=== PATIENT | female | born 1950 | race Caucasian/White ===

== ENCOUNTER 2024-12-24 21:43 | Inpatient (IN) | payer MEDICARE, OTHER, SELFPAY ==
[2024-12-24] VITALS (7 sets, daily range): BP systolic 113–130; BP diastolic 74–103; BMI 20.7; BMI 21.0
[2024-12-24 18:11] LABS: % Immature Granulocytes 0.3 % (0-0.5); % Lymphocytes 17.8 % (20.5-51.1); % Monocytes 5.1 % (1.7-9.3); % Neutrophils 75.8 % (42.2-75.2); Absolute Eosinophils 0.1 10^3/uL (0-0.7); Absolute Lymphocytes 1.1 10^3/uL (1.2-3.4); Absolute Monocytes 0.3 10^3/uL (0.1-0.6); Absolute Neutrophils 4.5 10^3/uL (1.4-6.5); Hematocrit 33.7 % (37.0-47.0); Hemoglobin 11.8 g/dL (12.0-16.0); Mean Corpuscular Hgb 30.3 pg (27.0-31.0); Mean Corpuscular Volume 86.6 fL (81.0-99.0); Mean Platelet Volume 9.8 fL (7.4-10.4); Nucleated Red Blood Cells % 0 %; Platelet Count 182 10^3/uL (130-400); Red Blood Cell Count 3.89 10^6/uL (4.20-5.40); Red Cell Dist. Width 13.4 % (11.5-14.5); White Blood Cell Count 5.9 10^3/uL (4.8-10.8)
[2024-12-24 18:27] LABS: ALT (SGPT) 24 U/L (0-35); AST (SGOT) 26 U/L (14-36); Alkaline Phosphatase 71 U/L (38-126); Blood Urea Nitrogen 7 mg/dl (7-17); Calcium 9.4 mg/dl (8.4-10.2); Carbon Dioxide 22 mmol/L (22-30); Chloride 101 mmol/L (98-107); Glucose 130 mg/dl (70-99); Potassium 3.4 mmol/L (3.5-5.1); Sodium 132 mmol/L (135-145); Total Bilirubin 1.3 mg/dl (0.2-1.3); Total Protein 6.4 g/dl (6.3-8.2); eGFR > 60.00
[2024-12-24 18:59] LABS: TSH Reflex To Free T4 3.99 uIU/ml (0.47-4.68)
--- NOTE | 2024-12-24 19:24 | ED.GENMED ---
History of Present Illness
General
Chief Complaint: Heart Rate Problem
Source: patient and other (Friend)
Exam Limitations: none
Time Seen by Provider: 12/24/24 18:55
Nursing documentation reviewed up to this point in time: agreed with
History of Present Illness
History of Present Illness:
74-year-old female presents emergency department complaining of general weakness for the past 2 days, chills and a rash on her arms and abdomen. She denies fevers. She was seen in urgent care, and was found to be in uncontrolled atrial
fibrillation.
Past History
Past History
ED Past Medical History: Arrthythmia
ED Past Surgical History: Other (Right lumpectomy)
Social History
Tobacco: Non-smoker
Alcohol: None
Drug: None
Living: alone
Review of Systems
Review of Systems
Allergies reviewed?: Yes
All Other Systems: Not applicable
Constitutional: Reports chills; Denies fever
EENT: Reports no symptoms
Respiratory: Reports no symptoms
Cardiac: Reports palpitations
ABD/GI: Reports no symptoms
: Reports no symptoms
Musculoskeletal: Reports no symptoms
Skin: Reports itching and rash
Neurological: Reports no symptoms
Endocrine: Reports no symptoms
Hematologic/Lymphatic: Reports no symptoms
Psychiatric: Reports no symptoms
Phy Exam
Physical Exam
Physical Exam:
Physical Exam
General: no apparent distress, not acutely ill
Neck: supple. no meningeal signs. normal posterior pharynx
Heart: s1/s2 tachycardia, no murmur. equal radial
pulses.
HEENT: Pupils equal round reactive to light, EOMI
Lungs: no acute respiratory distress. clear bilaterally
Abdomen: normal bowel sounds. not tender. no CVAT
Neuro: alert and oriented. no focal neurological deficits cranial nerves II through XII intact
Skin: macular rash on abdomen/back
Psychiatric: well kept. interactive and cooperative
Extremities: no edema. no calf tenderness. negative homans. good distal pulses
Course
Orders/Labs/Results
Orders:
Orders
12/24/24 17:36
Electrocardiogram (*1) Urgent
Reason for Study: Atrial Fibrillation
EKG- Treatment ONCE
12/24/24 17:57
Complete Blood Count/With Diff Urgent
Comprehensive Metabolic Panel Urgent
TSH Reflex To Free T4 Urgent
12/24/24 19:23
Diltiazem 125 mg/125 ml Nss [Cardizem] 125 mg in 125 ml IV NOW
Initial dose in mg/hr, then titrate:: 5
Titrate to keep:: Heart rate 80-100 bpm
Titrate by mg/hr:: 5 mg/hr
Frequency of titrations (minutes):: 15
Maximum dose in mg/hr:: 15
Diltiazem HCl [Cardizem] 5 mg IV NOW STA
12/24/24 19:34
CR Chest - 2 Views Urgent
Comment:
Reason For Exam: short of breath
12/24/24 19:40
COVID-19 Antigen Urgent
Source: Nasal Swab
Influenza A+B Rapid Molecular Urgent
RADHA Source: Nasal Swab
Specimen Description:
Abnormal Lab Results
12/24/24
17:57
RBC 3.89 L 10^6/uL
(4.20-5.40)
Hgb 11.8 L g/dL
(12.0-16.0)
Hct 33.7 L %
(37.0-47.0)
Absolute Lymphs (auto) 1.1 L 10^3/uL
(1.2-3.4)
Neutrophils % 75.8 H %
(42.2-75.2)
Lymphocytes % 17.8 L %
(20.5-51.1)
Sodium 132 L mmol/L
(135-145)
Potassium 3.4 L mmol/L
(3.5-5.1)
Glucose 130 H mg/dl
(70-99)
12/24/24 17:57
12/24/24 17:57
Vital Signs
Initial and Last Documented VS:
Initial Vital Signs
Temp Pulse Resp BP Pulse Ox
98.2 F 130 18 129/74 99
12/24/24 17:44 12/24/24 17:44 12/24/24 17:44 12/24/24 17:44 12/24/24 17:44
Last Documented Vital Signs
Temp Pulse Resp BP Pulse Ox
98.2 F 92 13 114/78 100
12/24/24 17:44 12/24/24 20:45 12/24/24 20:45 12/24/24 20:01 12/24/24 20:45
MDM/Problems Addressed
Differential Diagnosis Includes:
Pneumonia, influenza, rapid atrial fibrillation
MDM/Problems Addressed:
74-year-old female with rapid atrial fibrillation, diltiazem drip given. No signs of pneumonia seen. Patient taking Eliquis. Admit for rate control., Further evaluation
Chronic conditions affecting care: Arrhythmia
Acute Exacerbation and/or Progression of Chronic Illness: Arrhythmia
*Radiology
Radiology exam reviewed: radiology read reviewed (Chest x-ray no acute findings)
*Pulse Oximetry
Patient hypoxic: no
*EKG
Interpreted by ED Provider?: Yes
EKG Intrepretation Date: 12/24/24
EKG Intrepretation Time: 17:40
Interpretation: abnormal
Comparison EKG: no comparison EKG present
Heart Rate: 162
Rate: tachycardiac
Rhythm: a-fib
[place]: normal axis
Interval: normal interval
QRS Pattern: normal QRS
Ischemia: non-specific ST changes
*Street Car Inspector Interpretation
Rate: tachycardiac
Interpretation: abnormal
Heart Rate: 140
Rhythm: a-fib
*Critical Care Note
Total Time (30-74mins, 75-104mins- exclusive of procedures): 35
comment:
Critical care statement: A total of 35 minutes of critical care time was provided for this patient. This includes management of unstable vital signs, evaluation of the patient at bedside, reviewing the patient's pertinent medical records, discussion
with consultants, review of old EKGs and review of pertinent medical records. This time with separate from time utilized to perform the aforementioned documented procedures
Patient Management
Social determinants of health affecting care: Living situation
Discussion with other providers: Hospitalist
Escalation/DeEscalation of care consider admission/obs:
admit not indicated
ED Attending Note
-
Portions of this chart may have been created with voice recognition software.� Occasional wrong word or��sound alike� substitutions may have occurred due to the inherent limitations of voice recognition software.
Discharge Plan
Departure
Patient Disposition: Admit
Date of Disposition: 12/24/24
Time of Disposition: 20:52
Admit to: IMU
Presentation/result/management discussed w/ accepting MD/DO: Hospitalist
Patient with high blood pressure during this ER visit?: Yes
Condition: Fair
Discharge Problem:
Atrial fibrillation with rapid ventricular response, Dermatitis
Referrals:
Justina Charles MD [Family Provider] -
Interventions
Interventions:
*Risk Screen - Suicide Last Done: 12/24/24 17:44
*General Assessment Last Done: 12/24/24 17:44
*Neglect/Abuse Screening Last Done: 12/24/24 17:44
*ED- Fall Risk Assessment Last Done: 12/24/24 18:54
*ED COVID-19 Vaccine History Last Done: 12/24/24 17:44
ED- Cardiac Assessment Last Done: 12/24/24 18:54
ED- Pulmonary Assessment Last Done: 12/24/24 18:54
Discharge Date and Time
Print Language: QATARI
[2024-12-24] MEDS: CARDIZEM 125 IV (19:34)
[2024-12-24] MEDS: CARDIZEM 5 MG IV (19:34)
[2024-12-24 20:03] LABS: COVID-19 Antigen Negative (Negative)
--- NOTE | 2024-12-24 21:25 | HPS.HSE ---
Family Physician
-
Family Physician: Justina Charles
Chief Complaint
-
Rash and Rapid A-Fib
History of Present Illness
Patient is a 74 y/o female past medical history of paroxysmal atrial fibrillation and breast cancer who presents with rash and rapid a-fib. Patient reports she developed weakness with associated chills two days ago. She then noticed a very pruritic
rash mostly on her legs and abdomen, and faintly on the arms. The rash prompted her go to urgent care who found her to be in atrial fibrillation with rapid ventricular response, and referred her to the emergency department for evaluation. Patient
reports increased palpitations. She denies chest pain. She reports recently increasing a calcium supplement about one week ago. She denies any new lotions, shampoo, soap or laundry detergent.
Medical History
Past Medical History
Past Medical History: Reports Other
Additional Past Medical History:
Paroxysmal Atrial Fibrillation
Breast Cancer s/p Right Lumpectomy and Radiation
Past Surgical History: Reports Other
Additional Past Surgical History:
Right Breast Lumpectomy
Social History
Tobacco: Non-smoker
Alcohol: Occasional
Family History
Family History: Not pertinent
Allergies / Home Medications
Allergies reflects when Allergies were last updated in [facility].
Home Medications with original date entered in [facility]
Allergy/Medication List:
Allergies
Allergy/AdvReac Type Severity Reaction Status Date / Time
Sulfa (Sulfonamide Allergy Itching Verified 12/24/24 17:47
Antibiotics)
Home Medications
apixaban 5 mg tablet (Eliquis) 5 mg PO BID 12/24/24
azelastine 137 mcg (0.1 %) nasal spray 1 spray intranasal PRN PRN seasonal allergies 12/24/24
bimatoprost 0.01 % eye drops (Lumigan) 1 drp ophthalmic (eye) HS 12/24/24
fluticasone propionate 50 mcg/actuation nasal spray,suspension 2 spray intranasal DAILY 12/24/24
metoprolol succinate 25 mg tablet,extended release 24 hr 25 mg PO BID 12/24/24
metoprolol tartrate 25 mg tablet 25 mg PO DAILY@1400 12/24/24
metoprolol tartrate 25 mg tablet 25 mg PO PRN PRN palpitations 12/24/24
rosuvastatin 20 mg tablet 20 mg PO DAILY 12/24/24
zolpidem 10 mg tablet 10 mg PO HSPRN PRN sleep 12/24/24
Review of Systems
-
A 12 point ROS was completed and negative except as noted: Yes
Constitutional: Denies Fever or Chills
Respiratory: Denies Cough or Trouble Breathing
Cardiac: Reports Palpitations
Physical Exam
Vital Signs
Vital Signs
Temp Pulse Resp BP Pulse Ox
98.2 F 92 13 114/78 100
12/24/24 17:44 12/24/24 20:45 12/24/24 20:45 12/24/24 20:01 12/24/24 20:45
Physical Exam
General: Comfortable and Conversant
HEENT: Anicteric and Moist mucous membranes
Respiratory: Clear and Non Labored Respirations
Cardiac: S1/S2 and Irregular Rhythm; No Tachycardia
GI: Soft and Non Tender
Rectal: Deferred by Provider
Musculoskeletal: No Clubbing, No Cyanosis and No Edema
Skin: Warm, Dry and Rash (Macular rash across back, abdomen with notable worsening on bilateral lower extremities)
Neuro: Awake, Alert, Oriented and Nonfocal/grossly intact
Psych: Calm
Laboratory Results
-
12/24/24 17:57
12/24/24 17:57
Laboratory Results
Total Bilirubin 1.3 mg/dl (0.2-1.3) 12/24/24 17:57
AST 26 U/L (14-36) 12/24/24 17:57
ALT 24 U/L (0-35) 12/24/24 17:57
Alkaline Phosphatase 71 U/L (38-126) 12/24/24 17:57
Data Reviewed
-
Lab Data: Labs Reviewed by me
Impression/Plan
-
Atrial Fibrillation with Rapid Ventricular Response
-Consult Cardiology
-Continue diltiazem infusion
-Continue metoprolol succinate as prior to admission
-Check Echo
-Continue Eliquis
Rash, likely drug-eruption from calcium supplement
-Continue Benadryl prn
Constipation
-Give Dulcolax suppository tonight
-Continue senna 2 tabs BID
DVT proph: Eliquis
Code Status: Full Code
[2024-12-24 21:31] LABS: Magnesium 1.9 mg/dl (1.6-2.3)
[2024-12-24] MEDS: BENADRYL 25 MG PO (21:34)
--- NOTE | 2024-12-24 21:35 | W.PN.UPDATE ---
Update Note
Progress Note Update
This note serves as an addendum to the H&P by communications controller VIVEK
Germania DIETERICK
HPI
74F HX HLD, Prx AF on Eliquis & Mtoprolol both tartrate and succinate seen at ER
- pw general weakness for the past 2 days,
- seen in urgent care, and was found to be in uncontrolled atrial fibrillation.
- chills and a rash on her arms and abdomen but afebrile
- Recently escalading dose of hi dose Calcium prescribe by Asian Art Curator for 4- 5days prior to onset of symmetric pruritic macualpapular rash in both [place] and chest
PHX; see above
VSS
12/24/24
17:44 12/24/24
19:34 12/24/24
19:45
Temp 98.2 F
Pulse 130 127 94
Blood pressure 129/74
SaO2 99
PE
Gen: Not toxic
HEENT: anicteric
Neck: supple
Lungs: CTA
Cor: tachy arrhythmic
Abdomen: benign exam
EGG TRAYER: AAO3 NFND
MS: no edema
Psych: anxious
Laboratory Tests
12/24/24 12/24/24
17:57 19:40
WBC 5.9
Hgb 11.8 L
Plt Count 182
Sodium 132 L
Potassium 3.4 L
Creatinine 0.7
eGFR > 60.00
SARS-CoV-2 Antigen Negative
NEG Flu
CXR : No acute cardiopulmonary process.
EKG
ATRIAL FIBRILLATION WITH RAPID VENTRICULAR RESPONSE
ST and T WAVE ABNORMALITY, CONSIDER INFEROLATERAL ISCHEMIA
ABNORMAL ECG
NO PREVIOUS ECGS AVAILABLE
NO PRIOR hospitalist admission:
ASSESSMENT & PLAN
Fast A Fib and palpitation likely set off by acute drug eruption
HX Parox A Fib follow up with Dr Le [facility]
No CP. No presyncope. No syncope
- Rate control with Dilt gtt
- AC: on Eliquis
- c/w Metoprol succinate 25mg BID
- Hold Metoprol tartare 25mg once daily and PRN
- ECHO in AM
- [facility] Card
Suspect drug eruption due to presumed hi dose Calcium tablet
symmetric pruritic maculopapular rash in both [place] and chest drup eruptions following ecently escalding dose of hi dose Calcium prescib by Asian Art Curator for 4- 5days prior to onset rash
No systemic symptoms or angioedema
- she stopped Calcium tables yesterday
- Antihistamine PO PRN
- Hold of Systemic steroids for now
- Observe
Chill without fever du to drug eruption. Nl WCC
Unlikely acute infection
No symptoms
DVT Px: on ENVELOPE FOLD OPERATOR Eliquis
Full code
IP TLM
[2024-12-24] MEDS: KCL 40 MEQ PO (21:43)
[2024-12-24] MEDS: DULCOLAX 10 MG RECTAL (23:09)
[2024-12-24] MEDS: AMBIEN 10 MG PO (23:09)
--- NOTE | 2024-12-24 23:56 | PTCARENOTE ---
Rec'd pt as admission from ER. Pt AAO*3, VSS, and Afib on TELE monitor with Hr in the 80's. Pt oriented to unit and updated on plan of care. Pt verbalizes understanding and Cardizem infusing as ordered. Pt denies having any active pain or
discomfort. Pt kept NPO after midnight for questionable CV or NAEEM in morning, and pt agreeable to NPO status. Pt resting with call salvador in reach and plan of care ongoing. See MAR and Flowchart for full pt assessment and care.
[2024-12-25] VITALS (21 sets, daily range): BP systolic 83–120; BP diastolic 62–94
[2024-12-25] MEDS: XALATAN OPHTHALMIC SOLUTION 1 DROP BOTH EYES ×2 (03:28→20:23)
[2024-12-25] MEDS: BENADRYL 25 MG PO ×3 (03:52→22:37)
[2024-12-25 03:54] LABS: Hematocrit 30.5 % (37.0-47.0); Mean Corp Hgb Conc. 36.1 g/dL (33.0-37.0); Mean Corpuscular Hgb 31.2 pg (27.0-31.0); Mean Corpuscular Volume 86.4 fL (81.0-99.0); Platelet Count 188 10^3/uL (130-400); Red Blood Cell Count 3.53 10^6/uL (4.20-5.40); Red Cell Dist. Width 13.4 % (11.5-14.5); White Blood Cell Count 4.8 10^3/uL (4.8-10.8)
--- NOTE | 2024-12-25 04:02 | PTCARENOTE ---
3AM vitals obtained. BP 80-90's systolic and HR 80's Aflutter. Pt denies feeling lightheaded or dizzy. HARLEY Sahu notified. Bobby put on pause while reaching out to HARLEY.
[2024-12-25 04:11] LABS: Blood Urea Nitrogen 5 mg/dl (7-17); Calcium 8.8 mg/dl (8.4-10.2); Carbon Dioxide 18 mmol/L (22-30); Chloride 105 mmol/L (98-107); Estimated Creatinine Clearance 59 ml/min; Glucose 86 mg/dl (70-99); Potassium 3.7 mmol/L (3.5-5.1); Sodium 133 mmol/L (135-145); eGFR > 60.00
--- NOTE | 2024-12-25 04:31 | PTCARENOTE ---
Rec'd order for cardizem to infuse at 2.5mg per hour. Rate adjusted at bedside and now infusing as ordered. New bp 93/70. Pt resting with call salvador in reach and plan of care ongoing. Pt updated on plan of care.
--- NOTE | 2024-12-25 07:36 | CON.CAR ---
Addendum entered and electronically signed by Trinidad Gabriel DO 12/25/24 17:02:
CT abdomen pelvis suspicious for colitis. Started on antibiotics per primary. Over the course of the day heart rates have increased currently atrial fibrillation in the 140s. Will give a dose of IV Lopressor 5 mg now and up titrate Toprol-XL to
37-1/2 twice daily. If heart rates continue to be uncontrolled may need to resume IV Cardizem or reconsider antiarrhythmic therapy however she has previously declined
Addendum entered and electronically signed by Trinidad Gabriel DO 12/25/24 14:38:
I saw and examined the patient.
The Senior Sustainability Advisor's note was reviewed and I agree with the note.
Comment: Patient was seen and examined with cardiac PA. Patient is known to [facility] and follows with Dr. Jaspal Le. [facility] with complaints of palpitations and a finding of
rapid A-fib resulting in admission and cardiology has been consulted. Patient reports that her can capper told her to take a higher dose of calcium resulting in constipation and then rash. Patient has a known history of persistent A-fib.
Patient has been more persistent with her A-fib and at all available cardiology evaluations including 08/25/2022 at [facility], 03/25/2023 again at [facility] and in the cardiology office here at on 05/26/2023, 10/14/2023, 02/28/2024 and 08/04/2024.
Patient has consistently declined options of antiarrhythmic drug or ablation therapy. Patient has not completed an outpatient monitor since the year 2019 and at that time the A-fib burden was only about 15%. Review of cardiology notes from
previous rubber attacher indicates that patient was having both symptomatic and asymptomatic A-fib and there was concern that her burden had increased as of 2022, but patient was unable to wear a monitor due to financial concerns and insurance
reimbursement. At her last office visit 08/04/2024 it was discussed again the options of AAD or ablation and the patient ultimately chose to continue her current regimen of Toprol XL 25 mg BID plus Lopressor as needed anywhere from 1-3 times a day.
At present, she denies chest pain or pressure, shortness of breath or edema. She does occasionally feel palpitations when heart rates are in the 1�teens. She is complaining of abdominal pain and constipation; CT is planned.
General: No acute distress, AAOX3
Heart: Irregularly irregular, tachycardic to 90s to low 100s. No murmur
Lungs: Bronchovesicular breath sounds, decreased but clear.
Abd: Distended, positive bowel sounds. Nontender.
Ext: No edema. Mild erythema noted on bilateral lower legs; nonpruritic
Neuro: nonfocal
Plan:
Longstanding paroxysmal atrial fibrillation now persistent with rapid rates in the setting of abdominal pain/constipation
-We discussed options of arrhythmia management including proceeding with antiarrhythmic drug/cardioversion versus outpatient ablation. She does not wish to proceed with cardioversion but will talk with Dr. Le about ablation as an outpatient
-Will continue rate control strategy; will increase Toprol-XL to 37.5 mg twice daily and uptitrate as blood pressure allows
-Continue uninterrupted anticoagulation
Abdominal pain/constipation/ fatigue
-Workup ongoing per medicine
-Afebrile without leukocytosis. COVID-negative, influenza negative. Blood cultures drawn and pending
-CT of the abdomen pelvis planned
Rash of unclear etiology. Defer to medicine
Will sign off, recall if needed
Outpatient cardiac follow-up to be arranged
Original Note:
Consultation
Consultation Request
Date/Time Consultation Requested: 12/24/24 at 2254
Date/Time Consultation Performed: 12/25/24 at 0736
Requesting Provider: Dr. Peters
Performing Provider: Dr. SILVANO Dias
Reason for Consultation: Afib with RVR
Medical History
-
History of Present Illness:
Patient came to ER yesterday from an urgent care in [facility] with complaints of palpitations and a finding of rapid A-fib resulting in admission and cardiology has been consulted. Patient reports that her can capper told her to take a
higher dose of calcium resulting in constipation and then rash. Patient went to a local urgent care yesterday and [facility] and was noted to be in A-fib with RVR in the urgent care insisted that she be evaluated in the emergency room, but the
patient was concerned that the ambulance would take her to a hospital other than and so she declined further care and drove here to instead. Patient has a known history of persistent A-fib. Patient has been more persistent with her A-fib and
at all available cardiology evaluations including 08/25/2022 at [facility], 03/25/2023 again at [facility] and in the cardiology office here at on 05/26/2023, 10/14/2023, 02/28/2024 and 08/04/2024. Patient has consistently declined options of
antiarrhythmic drug or ablation therapy. Patient has not completed an outpatient monitor since the year 2019 and at that time the A-fib burden was only about 15%. Review of cardiology notes from previous rubber attacher indicates that patient was
having both symptomatic and asymptomatic A-fib and there was concern that her burden had increased as of 2022, but patient was unable to wear a monitor due to financial concerns and insurance reimbursement. At her last office visit 08/04/2024 it
was discussed again the options of AAD or ablation and the patient ultimately chose to continue her current regimen of Toprol XL 25 mg BID plus Lopressor as needed anywhere from 1-3 times a day. Patient denies any CP, SOB or SANTO.
PMH:
Persistent A-fib
Initial diagnosis in the setting of wasp sting 04/2020
Chronic Eliquis OAC
Nonobstructive minimal plaque on coronary CTA, calcium score 17 at [facility] 08/2020
Hyperlipidemia
Past Medical History
Past Medical History: Other (in HPI)
Past Surgical History: Gynecological (lumpectomy)
Social History
Tobacco: Non-Smoker
Alcohol: Occasional (2-4 times a month)
Drug: None
Personal:
Living: Alone
Family History
Family History: CAD and Other (COPD, sister with stent in her early 60s and Afib as well)
Allergies / Home Medications
Allergy/AdvReac Type Severity Reaction Status Date / Time
Sulfa (Sulfonamide Allergy Itching Verified 12/24/24 17:47
Antibiotics)
�Medication �Instructions �Recorded �Confirmed �Type
apixaban 5 mg tablet (Eliquis) 5 mg PO BID 12/24/24 12/24/24 History
azelastine 137 mcg (0.1 %) nasal 1 spray intranasal PRN PRN 12/24/24 12/24/24 History
spray seasonal allergies
benzonatate 200 mg capsule 200 mg PO BID PRN cough 12/24/24 12/24/24 History
bimatoprost 0.01 % eye drops 1 drp ophthalmic (eye) HS 12/24/24 12/24/24 History
(Lumigan)
fluticasone propionate 50 2 spray intranasal DAILY 12/24/24 12/24/24 History
mcg/actuation nasal
spray,suspension
metoprolol succinate 25 mg 25 mg PO BID 12/24/24 12/24/24 History
tablet,extended release 24 hr
metoprolol succinate 25 mg 25 mg PO HS 12/24/24 12/24/24 History
tablet,extended release 24 hr
metoprolol tartrate 25 mg tablet 25 mg PO DAILY@1400 12/24/24 12/24/24 History
metoprolol tartrate 25 mg tablet 25 mg PO PRN PRN palpitations 12/24/24 12/24/24 History
rosuvastatin 20 mg tablet 20 mg PO DAILY 12/24/24 12/24/24 History
zolpidem 10 mg tablet 10 mg PO HSPRN PRN sleep 12/24/24 12/24/24 History
Review of Systems
-
History Source: Patient
All other systems: Negative unless noted
Physical Exam
Vital Signs
Temp Pulse Resp BP Pulse Ox
98.7 F 79 18 98/70 98
12/25/24 03:15 12/25/24 04:15 12/25/24 03:15 12/25/24 04:15 12/25/24 03:15
GEN: NAD. AAOx3
HEENT: EOMI, MMM
LUNGS: RA. CTA, no wheeze
CV: Afib on tele. Irreg irreg, S1/S2, no murmur
ABD: soft, BS+, NT, ND
EXT: No clubbing, cyanosis, lesions or edema B/L
NEURO: Gross non-focal
SKIN: Macular rash B/L shins and abdomen. Otherwise warm, dry and pink.
Lab Results
12/25/24 03:23
12/25/24 03:23
Impression / Plan
-
PCP: Dr. Justina Charles
Card: Previously Dr. Renato Zeng, now following with Dr. Le exclusively
EP: Previously Dr. Cottrell, now following with Dr. Le exclusively
Impression:
Admitted with A-fib and RVR 12/24/2024
Persistent A-fib
Initial diagnosis in the setting of wasp sting 04/2020
Chronic Eliquis OAC
Nonobstructive minimal plaque on coronary CTA, calcium score 17 at [facility] 08/2020
Hyperlipidemia
Holter monitor 06/2020: [facility] study, overall 15% burden of A-fib including 1 episode up to 8 hours
Echo 04/2020: [facility] study, EF 60 to 65%, LV wall motion is normal
Echo 08/25/22: [facility] study, EF 55% without WMA, normal RV size and function, mild MR, mild TR with PAP 25 mmHg, mildly dilated LA, patient in A-fib during study
Plan:
-Patient came to ER yesterday from an urgent care in [facility] with complaints of palpitations and a finding of rapid A-fib resulting in admission and cardiology has been consulted. Patient reports that her can capper told her to take a
higher dose of calcium resulting in constipation and then rash. Patient went to a local urgent care yesterday and flower [facility] and was noted to be in A-fib with RVR in the urgent care insisted that she be evaluated in the emergency room, but the
patient was concerned that the ambulance would take her to a hospital other than and so she declined further care and drove here to instead. Patient has a known history of persistent A-fib. Patient has been more persistent with her A-fib and
at all available cardiology evaluations including 08/25/2022 at [facility], 03/25/2023 again at [facility] and in the cardiology office here at on 05/26/2023, 10/14/2023, 02/28/2024 and 08/04/2024. Patient has consistently declined options of
antiarrhythmic drug or ablation therapy. Patient has not completed an outpatient monitor since the year 2019 and at that time the A-fib burden was only about 15%. Review of cardiology notes from previous rubber attacher indicates that patient was
having both symptomatic and asymptomatic A-fib and there was concern that her burden had increased as of 2022, but patient was unable to wear a monitor due to financial concerns and insurance reimbursement. At her last office visit 08/04/2024 it
was discussed again the options of AAD or ablation and the patient ultimately chose to continue her current regimen of Toprol XL 25 mg BID plus Lopressor as needed anywhere from 1-3 times a day. Patient denies any CP, SOB or SANTO.
-ECG reviewed by me shows A-fib with RVR and no acute ischemic changes
-Review of laboratory monitor shows ongoing A-fib with HR 95 to 105 bpm. Cardizem gtt was started on admission and is currently running at 2.5 mg. Outpatient dose of Toprol-XL 25 mg BID was given this morning
-Patient reports compliance with her outpatient dose of Eliquis 5 mg BID (age 74, Cre 0.6) except that her dose was missed last night while she was in the ER. Her usual dose of Eliquis has been restarted and given this morning
-Discussed with patient 3 different options: Option #1 is to continue as is and perhaps consider higher dose of Toprol-XL, option #2 is AAD loading (Tikosyn) followed by NAEEM/CV and option #3 is to discuss ablation as an outpatient +/- option 1 or
option 2 as a bridge
-Patient is going to weigh her decisions. If patient elects for AAD loading then she would need NAEEM due to missed dose of Eliquis overnight
-Will stop Cardizem gtt
-Check echo
[2024-12-25] MEDS: CRESTOR 20 MG PO (08:21)
[2024-12-25] MEDS: ELIQUIS 5 MG PO ×2 (08:21→20:23)
[2024-12-25] MEDS: TOPROL XL 25 MG PO (08:21)
[2024-12-25] MEDS: SENOKOT 17.2 MG PO ×2 (08:22→20:23)
[2024-12-25 09:28] LABS: Hepatitis C Antibody Negative (Negative)
--- NOTE | 2024-12-25 10:35 | W.PN.HOSP.TC ---
Today's Communication/Plan
-
Obtain blood cultures
Obtain CT of the abdomen pelvis
CW afib tx per cardiology
Assessment / Plan
Assessment / Plan
Generalized weakness associated with shaking chills and feeling cold-raises a concern for infectious process including bacteremia-afebrile and white count normal on admission. COVID and flu negative. With the story of constipation and nonspecific
abdominal signs and symptoms conservative there was any colitis to account for this. Check blood cultures. Check a CT of the abdomen pelvis with oral and IV contrast.
Atrial Fibrillation with Rapid Ventricular Response
-Consulted Cardiology
-Off of diltiazem infusion. Rate controlled A-fib.
-Continue metoprolol succinate as prior to admission
-Check Echo
-Continue Eliquis
Rash-apparently maculopapular on admission currently only mild erythema noted on the legs. Unclear etiology.
-Continue Benadryl prn
Constipation
-Add Colace and MiraLAX
-Continue senna 2 tabs BID
Hyponatremia -follow Na
DVT proph: Eliquis
Code Status: Full Code
Total time spent on today's encounter was 52 minutes which included time spent in counseling the patient/family regarding diagnosis and treatment plan as listed above, goals of care, and symptom management. Case was discussed with nursing staff,
specialists, and care coordinators/case management. All labs and imaging personally reviewed by me. Remainder the time spent in detailed review of previous records, lab data, imaging, and other medical provider documentation.
Anticipated Discharge: 24 - 48 hours
Subjective/Interval History
-
Date of Service: December 25, 2024
It all started late last week with a progressive constipation. She thinks it was due to increased calcium supplementation by her cream separator operator. She tried herbal senna but no result. She was constipated for more than 3 days.
She was having some abdominal discomfort with it. No nausea vomiting.
Not sure if she had fevers but the Wednesday and Wednesday she was shaking and freezing and needed 4 blankets. She had generalized weakness associated with that. She then noticed faint red rash on the anterior chest and legs. It was bit itchy.
After she came in here she got a suppository with small bowel movement but still feels constipated.
With all that she was in A-fib for which she was referred to the hospital from urgent care center. Currently off of Cardizem. No chest pain or palpitations today.
Objective Data
-
Labs:
Laboratory Results
12/25/24
03:23
WBC 4.8
Hgb 11.0 L
Hct 30.5 L
Plt Count 188
Sodium 133 L
Potassium 3.7
Chloride 105
Carbon Dioxide 18 L
BUN 5 L
Creatinine 0.6
Glucose 86
Calcium 8.8
Vital Signs:
Vital Signs
Temp Pulse Resp BP Pulse Ox
98.1 F 103 18 97/67 98
12/25/24 08:14 12/25/24 09:00 12/25/24 08:14 12/25/24 08:21 12/25/24 08:14
I&O
12/24/24 12/25/24 12/26/24
06:59 06:59 06:59
Intake Total 480 / 480 465 / 465
Balance 480 / 480 465 / 465
Review of Systems
-
Respiratory: Denies Cough or Trouble Breathing
Genitourinary: Denies Dysuria or Frequency
Physical Exam
-
General: Comfortable
Respiratory: Clear to Auscultation, Non Labored Respirations and Accessory Resp Muscle Use
Cardiac: S1/S2 and Irregular Rhythm; Negative Tachycardic
GI: Soft, Nondistended, Normal Bowel Sounds and Tender (central abdomen but no rebound or guarding)
Neuro: AO x 3
Psych: Calm
Data Reviewed
-
Labs: Labs Reviewed by me
--- NOTE | 2024-12-25 11:46 | CM ---
Chart reviewed. Patient does not speak Kiswahili, patient's son and DIL at bedside. Patient is independent of ADLS, lives with her son and DIL in a [address], 2 [facility], 0 DME.
Reviewed preoperative and postoperative instructions and restrictions, along with showering instructions. Gave patient a Cardiac Surgery Book. Patient is agreeable to a home visit by CT Transitional RN. Plan is for the patient to return home with
CT Transitional RN.
--- NOTE | 2024-12-25 11:53 | CM ---
Chart reviewed. Patient is independent of ADLS, lives alone in a 1 [address], 1 R[facility], 0 DME. Patient requesting Advance Directive. Form given to the patient. Plan is for the patient to return home. CM to follow
[2024-12-25] MEDS: OMNIPAQUE 50 ML PO (11:57)
[2024-12-25] MEDS: TOPROL XL 12.5 MG PO (12:03)
[2024-12-25] MEDS: ROCEPHIN 1000 MG IV (16:16)
[2024-12-25] MEDS: STERILE WATER FOR INJECTION 10 ML IV (16:17)
[2024-12-25] MEDS: FLAGYL 500 MG 100 IV ×2 (16:29→23:08)
--- NOTE | 2024-12-25 16:37 | PTCARENOTE ---
Pt continues to be in atrial fib w/ resting heart rates 115-150. Will monitor.
[2024-12-25] MEDS: COLACE 100 MG PO (16:50)
[2024-12-25] MEDS: TOPROL XL 37.5 MG PO (17:21)
[2024-12-25] MEDS: LOPRESSOR 5 MG IV (17:24)
[2024-12-25] MEDS: MIRALAX PO (18:56)
[2024-12-25] MEDS: COLACE PO (20:23)
[2024-12-26] VITALS (8 sets, daily range): BP systolic 104–136; BP diastolic 75–98
[2024-12-26] MEDS: AMBIEN 10 MG PO ×2 (00:05→23:05)
--- NOTE | 2024-12-26 00:59 | PTCARENOTE ---
Pt. remains in A-fib, rate up to 140's with activity, 90's-110's at rest. Rate discussed with hospitalist BANDAR Escalante, will not treat until rate sustains 120's-130's. Current rate 99, pt. sleeping.
[2024-12-26 06:42] LABS: Blood Urea Nitrogen 8 mg/dl (7-17); Calcium 9.6 mg/dl (8.4-10.2); Carbon Dioxide 24 mmol/L (22-30); Chloride 105 mmol/L (98-107); Estimated Creatinine Clearance 51 ml/min; Glucose 73 mg/dl (70-99); Potassium 4.7 mmol/L (3.5-5.1); Sodium 137 mmol/L (135-145); eGFR > 60.00
[2024-12-26] MEDS: TOPROL XL 50 MG PO ×2 (08:47→20:22)
[2024-12-26] MEDS: CRESTOR 20 MG PO (08:47)
[2024-12-26] MEDS: ELIQUIS 5 MG PO ×2 (08:47→20:22)
[2024-12-26] MEDS: FLAGYL 500 MG 100 IV ×3 (08:48→23:05)
[2024-12-26] MEDS: SENOKOT 17.2 MG PO ×2 (08:52→20:22)
[2024-12-26] MEDS: COLACE 100 MG PO ×2 (08:54→20:22)
[2024-12-26] MEDS: MIRALAX 17 GRAMS PO (08:57)
--- NOTE | 2024-12-26 09:29 | W.PN.HOSP.TC ---
Today's Communication/Plan
-
cw bowel regimen and abx
CW rate control meds
DC home if ok from cardiology standpoint
Assessment / Plan
Assessment / Plan
Generalized weakness associated with shaking chills and feeling cold-raises a concern for infectious process including bacteremia-afebrile and white count normal on admission. COVID and flu negative. With the story of constipation and nonspecific
abdominal signs and symptoms concern for colitis .
CT abdomen pelvis with oral and IV contrast raises a concern for colitis but limited study as the contrast did not get into the colon.
Blood cultures negative so far.
Concern is colitis and with constipation cannot rule out stercoral coral colitis. She is not septic. Will continue the bowel regimen and started on empirical antibiotics for colitis. Started on ceftriaxone on Flagyl. DC home on Augmentin for
total of 10 days of antibiotics.
Patient has never had a colonoscopy. Strongly advised her to see a GI physician with new constipation and colitis. She in the past was given a stool card test which she did not complete. She is going to consider follow-up with a GI physician this
time.
Atrial Fibrillation with Rapid Ventricular Response
-RVR today but asymptomatic
-Off of diltiazem infusion. Rate controlled A-fib.
-Continue metoprolol succinate as prior to admission
-Echo with EF 60-65 and mild MR and mild TR
-Continue Eliquis
Rash-apparently maculopapular on admission currently only mild erythema noted on the legs. Unclear etiology.
-Continue Benadryl prn
Constipation
-cw Colace and MiraLAX
-Continue senna 2 tabs BID
- De escalate bowel regimen depending on response
Hyponatremia -normalized
DVT proph: Eliquis
Code Status: Full Code
DC home when okay from cardiology standpoint
Anticipated Discharge: Today
Subjective/Interval History
-
Date of Service: December 26, 2024
Patient without further chills.
No nausea vomiting. Her abdomen still slightly painful. Passing some stools now which is liquidy. Tolerating diet
Denies any chest pain, shortness of breath or palpitations.
Objective Data
-
Labs:
Laboratory Results
12/26/24
05:55
Sodium 137
Potassium 4.7 D
Chloride 105
Carbon Dioxide 24
BUN 8
Creatinine 0.7
Glucose 73
Calcium 9.6
Vital Signs:
Vital Signs
Temp Pulse Resp BP Pulse Ox
98.0 F 120 16 104/75 97
12/26/24 07:16 12/26/24 03:09 12/26/24 07:16 12/26/24 03:09 12/26/24 07:16
I&O
12/25/24 12/26/24 12/27/24
06:59 06:59 06:59
Intake Total 480 / 480 1045 / 1045
Balance 480 / 480 1045 / 1045
Physical Exam
-
General: No Apparent Distress
Respiratory: Clear to Auscultation and Non Labored Respirations; Negative Accessory Resp Muscle Use
Cardiac: S1/S2, Irregular Rhythm and Tachycardic
GI: Soft, Nondistended, Normal Bowel Sounds and Tender (Some discomfort in the mid abdomen and suprapubic area but no rebound guarding )
Neuro: AO x 3
Data Reviewed
-
CT Scan: Report Reviewed by me (CT scan abdo/pelvis)
Labs: Labs Reviewed by me
[2024-12-26] MEDS: CARDIZEM CD 120 MG PO (10:00)
--- NOTE | 2024-12-26 10:11 | W.PN.CARDCBS ---
Addendum entered and electronically signed by Anjel Tee MD 12/26/24 11:02:
I saw and examined the patient.
The Disk Sander's note was reviewed and I agree with the note.
Comment: Briefly, 74-year-old woman past medical history of paroxysmal A-fib who was evaluated in the urgent care for abdominal discomfort and found to be in atrial fibrillation with rapid ventricular response for which she was referred to
[place] emergency department for further evaluation. She is currently being treated for colitis with IV antibiotics per hospital medicine.
In regards to her atrial fibrillation, heart rates have been difficult to control in atrial fibrillation/flutter
Will uptitrate home metoprolol dose
Add oral Cardizem
Reviewed with patient if we are unable to control heart rates, heart rate goal less than 110 bpm, would consider direct-current cardioversion prior to discharge
Explained that the best long-term option is likely ablation, she is now agreeable to pulsed field ablation with Dr. Le
All questions answered
Original Note:
Today's Communication / Plan
-
increase toprol. add cardizem
continue eliquis
arrange for EP eval, interested in PFA
Impression / Plan
-
PCP: Dr. Justina Charles
Card: Previously Dr. Renato Zeng, now following with Dr. Le exclusively
EP: Previously Dr. Cottrell, now following with Dr. Le exclusively
Impression:
Admitted with A-fib and RVR 12/24/2024
Persistent A-fib
Initial diagnosis in the setting of wasp sting 04/2020
Chronic Eliquis OAC
Nonobstructive minimal plaque on coronary CTA, calcium score 17 at [facility] 08/2020
Hyperlipidemia
OA
Holter monitor 06/2020: [facility] study, overall 15% burden of A-fib including 1 episode up to 8 hours
Echo 04/2020: [facility] study, EF 60 to 65%, LV wall motion is normal
Echo 08/25/22: [facility] study, EF 55% without WMA, normal RV size and function, mild MR, mild TR with PAP 25 mmHg, mildly dilated LA, patient in A-fib during study
ECHO 12/25/24: EF 60-65%, mild MR, mild TR
Plan:
-she remains in afib with rapid response on review of tele overnight, at times HRs as high as 150s. toprol increased to 50mg BID and cardizem cd 120mg daily added.
-continue eliquis. 1 dose was missed 316PM while in ER
-she is inquiring about inpatient ablation, which we discussed is likely not feasible option. she does not favor AAD therapy or NAEEM/CV as an option. will schedule patient for OP EP follow up to discuss PFA.
-echo 12/25 with results as above, stable compared to prior
-TSH WNL
-d/w hospitalist via TT. d/w nursing
PREADMIT DATA:
-Patient came to ER yesterday from an urgent care in [facility] with complaints of palpitations and a finding of rapid A-fib resulting in admission and cardiology has been consulted. Patient reports that her kitchen hand told her to take a
higher dose of calcium resulting in constipation and then rash. Patient went to a local urgent care yesterday and [facility] and was noted to be in A-fib with RVR in the urgent care insisted that she be evaluated in the emergency room, but the
patient was concerned that the ambulance would take her to a hospital other than and so she declined further care and drove here to instead. Patient has a known history of persistent A-fib. Patient has been more persistent with her A-fib and
at all available cardiology evaluations including 08/25/2022 at [facility], 03/25/2023 again at [facility] and in the cardiology office here at on 05/26/2023, 10/14/2023, 02/28/2024 and 08/04/2024. Patient has consistently declined options of
antiarrhythmic drug or ablation therapy. Patient has not completed an outpatient monitor since the year 2019 and at that time the A-fib burden was only about 15%. Review of cardiology notes from previous trading analyst indicates that patient was
having both symptomatic and asymptomatic A-fib and there was concern that her burden had increased as of 2022, but patient was unable to wear a monitor due to financial concerns and insurance reimbursement. At her last office visit 08/04/2024 it
was discussed again the options of AAD or ablation and the patient ultimately chose to continue her current regimen of Toprol XL 25 mg BID plus Lopressor as needed anywhere from 1-3 times a day. Patient denies any CP, SOB or SANTO.
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
Subjective
Date of Service: December 26, 2024
no cardiac complaints.
Objective
Labs:
12/25/24 03:23
12/26/24 05:55
Labs
Hgb 11.0 g/dL (12.0-16.0) L 12/25/24 03:23
Hct 30.5 % (37.0-47.0) L 12/25/24 03:23
Plt Count 188 10^3/uL (130-400) 12/25/24 03:23
Sodium 137 mmol/L (135-145) 12/26/24 05:55
Potassium 4.7 mmol/L (3.5-5.1) D 12/26/24 05:55
BUN 8 mg/dl (7-17) 12/26/24 05:55
Creatinine 0.7 mg/dL (0.6-1.0) 12/26/24 05:55
Glucose 73 mg/dl (70-99) 12/26/24 05:55
Vital Signs and I&O:
Vital Signs
Temp Pulse Resp BP Pulse Ox
98.0 F 120 16 104/75 97
12/26/24 07:16 12/26/24 03:09 12/26/24 07:16 12/26/24 03:09 12/26/24 07:16
Vital Signs
Temp Pulse Resp BP Pulse Ox
98.0 F 120 16 104/75 97
12/26/24 07:16 12/26/24 03:09 12/26/24 07:16 12/26/24 03:09 12/26/24 07:16
Intake & Output
12/24/24 12/25/24 12/26/24 12/27/24
07:59 07:59 07:59 07:59
Intake Total 480 / 480 1045 / 1045
Balance 480 / 480 1045 / 1045
Physical Exam
Physical Exam
GEN: No distress, awake, alert, oriented x3
HEENT: supple, anicteric, mmm, eomi
LUNGS: CTA B/L, no wheezes
CV: Irreg irreg, S1/S2, no murmur
ABD: soft, BS+, NT/ND
EXT: No cyanosis, clubbing, edema
NEURO: Gross non-focal
SKIN: Warm, pink, dry. No rash
--- NOTE | 2024-12-26 13:08 | CM ---
Reviewed chart. Met with Mrs. Soto to review discharge plans. She states prior to admission she reside alone in a one story home with one step to enter. She states prior to admission she was independent with ambulation and adls. She states she
does not have any DME in the home. She states she has a prescription plan with [facility]. Medical work-up in progress. The discharge plan is to return home when medically stable.
[2024-12-26] MEDS: ROCEPHIN 1000 MG IV (15:58)
[2024-12-26] MEDS: STERILE WATER FOR INJECTION 10 ML IV (16:03)
--- NOTE | 2024-12-26 17:13 | PTCARENOTE ---
Pt ambulated in halls today, HR 100-120's, she remains in A-fib. She denies SOB.
--- NOTE | 2024-12-26 21:45 | PTCARENOTE ---
Rec'd pt at change of shift. Pt AAO*3, VSS, and AFib on TELE monitor. Pt denies having any pain or discomfort. Pt educated on possible AFib interventions and verbalizes understanding. Pt resting with call salvador in reach and plan of care ongoing.
See MAR and flowchart for full pt care and assessment.
[2024-12-26] MEDS: BENADRYL 25 MG PO (23:04)
[2024-12-26] MEDS: XALATAN OPHTHALMIC SOLUTION 1 DROP BOTH EYES (23:05)
--- NOTE | 2024-12-27 04:44 | DOWNTIME ---
There was a [employer] Client Fish Hatchery Superintendent Downtime on 12/27/2024 from 0100 to 12/28/2023 at 0420 . Downtime documentation of patient's care, including medication administrations, has been reconciled in the electronic record per guidelines. Refer to the
patient's paper chart under the miscellaneous tab to see printed paper medication records and downtime forms.
[2024-12-27 05:48] VITALS: BP 103/78
[2024-12-27 05:50] VITALS: BP 103/78
[2024-12-27 05:51] VITALS: BMI 19.9
[2024-12-27 08:00] VITALS: BP 111/87
[2024-12-27] MEDS: FLAGYL 500 MG 100 IV (08:09)
[2024-12-27] MEDS: CRESTOR 20 MG PO (08:10)
[2024-12-27] MEDS: ELIQUIS 5 MG PO (08:10)
[2024-12-27] MEDS: CARDIZEM CD 120 MG PO (08:10)
[2024-12-27] MEDS: COLACE PO (08:11)
[2024-12-27] MEDS: SENOKOT 17.2 MG PO (08:11)
[2024-12-27] MEDS: MIRALAX 17 GRAMS PO (08:12)
[2024-12-27] MEDS: TOPROL XL 50 MG PO (08:14)
--- NOTE | 2024-12-27 10:30 | CM ---
Chart reviewed. Patient is independent of ADLS, lives alone in a 1 STH, 1 RUTH, 0 DME. Plan is for the patient to return home. CM to follow
--- NOTE | 2024-12-27 11:15 | W.PN.HOSP.TC ---
Today's Communication/Plan
-
DC if ok from cardiology standpoint
Assessment / Plan
Assessment / Plan
Generalized weakness associated with shaking chills and feeling cold-raises a concern for infectious process including bacteremia-afebrile and white count normal on admission. COVID and flu negative. With the story of constipation and nonspecific
abdominal signs and symptoms concern for colitis .
CT abdomen pelvis with oral and IV contrast raises a concern for colitis but limited study as the contrast did not get into the colon.
Blood cultures negative.
Concern is colitis and with constipation cannot rule out stercoral coral colitis. She is not septic. Will continue the bowel regimen and started on empirical antibiotics for colitis. Started on ceftriaxone on Flagyl. DC home on Augmentin for
total of 10 days of antibiotics.
Patient has never had a colonoscopy. Strongly advised her to see a GI physician with new constipation and colitis. She in the past was given a stool card test which she did not complete. She is going to consider follow-up with a GI physician this
time.
Atrial Fibrillation with Rapid Ventricular Response
-RVR today but asymptomatic
-Off of diltiazem infusion. Rate controlled A-fib. Now on oral cardizem which is new.
-Continue metoprolol succinate as prior to admission
-Echo with EF 60-65 and mild MR and mild TR
-Continue Eliquis
Rash-apparently maculopapular on admission currently only mild erythema noted on the legs. Unclear etiology.
-Continue Benadryl prn
Constipation
-cw Colace and MiraLAX
-Continue senna 2 tabs BID
- De escalate bowel regimen depending on response
Tongue ulcer - right side . With raised borders suspect suspect chronic. Advised first to check with her dentist about the tooth issue and no dental issues to see oral surgeon and get a biopsy.
Hyponatremia -normalized
DVT proph: Eliquis
Code Status: Full Code
DC home when okay from cardiology standpoint
Anticipated Discharge: Today
Subjective/Interval History
-
Date of Service: December 27, 2024
Denies any palpitations, chest pain or shortness of breath.
With current bowel regimen she is moving bowels. They on softer side. No nausea vomiting. Improved abdominal discomfort. No fever chills.
Today she brings to my attention that right side of the tongue feels a painful and very swollen. Denies any tongue bite.
Objective Data
-
Vital Signs:
Vital Signs
Temp Pulse Resp BP Pulse Ox
98.1 F 88 18 111/87 100
12/27/24 08:03 12/27/24 08:00 12/27/24 08:03 12/27/24 08:00 12/27/24 08:03
I&O
12/26/24 12/27/24 12/28/24
06:59 06:59 06:59
Intake Total 1045 / 1045 480 / 480
Balance 1045 / 1045 480 / 480
Review of Systems
-
Constitutional: Denies Fever or Chills
Respiratory: Denies Trouble Breathing
Cardiac: Denies Chest Pain
Neuro: Denies Dizzy
Physical Exam
-
General: Comfortable
HEENT: Other (Rt side of tongue in the middle there is a well defined ulcer with raised borders , no discharge. Teeth in that area are ok. There is also on smaller ulcer with no raised borders underneath the tip on right side. No generalized tongue
swelling)
Cardiac: S1/S2 and Irregular Rhythm; Negative Tachycardic
GI: Soft, Nontender, Nondistended and Normal Bowel Sounds
Neuro: AO x 3
Psych: Calm
Data Reviewed
-
Labs: Labs Reviewed by me
[2024-12-27 12:10] VITALS: BP 106/86
--- NOTE | 2024-12-27 12:22 | W.PN.CARDCBS ---
Addendum entered and electronically signed by Jaspal Le MD 12/27/24 16:13:
Briefly Ms. Charles Santos is here after admission for colitis and rapid atrial fibrillation. Her medical therapy on discharge is as below. We have had multiple and frequent discussions regarding options of rate versus rhythm control in the office
over the years and she has been hesitant to make a decision despite her high AF burden. She will be discharged today on rate controlling medicines and oral anticoagulation and she has a visit with me scheduled for January to discuss rhythm control
options further. In the past we have discussed class III rhythm drugs and ablation in detail. I have recommended ablation at multiple points in the past. She appears to be decisive regarding next steps and wants to consider PVI with pulsed field
ablation as next steps. I asked her to reach out to my scheduling team so she could consider 'penciling in 'a date for procedure as were typically scheduling into March or April at this point. She appears stable and rate controlled on current
medications and tolerating oral anticoagulation. My inpatient team had multiple discussions regarding his options and took time to answer all questions.
Addendum entered and electronically signed by Anjel Tee MD 12/27/24 13:55:
I saw and examined the patient.
The Communication Equipment Repairer's note was reviewed and I agree with the note.
Comment: Briefly, 74-year-old woman past medical history of paroxysmal A-fib who was evaluated in the urgent care for abdominal discomfort and found to be in atrial fibrillation with rapid ventricular response for which she was referred to
[place] emergency department for further evaluation. She is currently being treated for colitis with IV antibiotics per hospital medicine.
Heart rates were difficult to control in atrial fibrillation/flutter, but better today
Home metoprolol dose has been uptitrated to 50mg BID
Oral Cardizem ER 120mg BID added
Rates are at goal <110 bpm on this combination
Discussed addition of amiodarone and consideration for DCCV either here or as an outpatient, but she declined this strategy and would prefer a rate control strategy for now
Explained that the best long-term option is likely ablation and she seems agreeable to this
Stable for discharge from my perspective, she has scheduled follow-up with primary fourdrinier wire weaver Dr. Le
Cardiac meds on discharge:
Toprol XL 50 mg twice daily
Cardizem ER 120 mg twice daily
Apixaban 5 mg p.o. twice daily
Rosuvastatin 20 mg daily
Original Note:
Today's Communication / Plan
-
add amio 200mg BID for 4 weeks then decrease to 200mg daily. stop po cardizem
continue toprol
continue eliquis
OP EP evaluation arranged to discuss ablation
Impression / Plan
-
PCP: Dr. Justina Charles
Card: Previously Dr. Renato Zeng, now following with Dr. Le exclusively
EP: Previously Dr. Cottrell, now following with Dr. Le exclusively
Impression:
Admitted with A-fib and RVR 12/24/2024
Persistent A-fib
Initial diagnosis in the setting of wasp sting 04/2020
Chronic Eliquis OAC
Nonobstructive minimal plaque on coronary CTA, calcium score 17 at [facility] 08/2020
Hyperlipidemia
OA
Holter monitor 06/2020: [facility] study, overall 15% burden of A-fib including 1 episode up to 8 hours
Echo 04/2020: [facility] study, EF 60 to 65%, LV wall motion is normal
Echo 08/25/22: [facility] study, EF 55% without WMA, normal RV size and function, mild MR, mild TR with PAP 25 mmHg, mildly dilated LA, patient in A-fib during study
ECHO 12/25/24: EF 60-65%, mild MR, mild TR
Plan:
-she remains in afib with rapid response on review of tele overnight, at times HRs as high as 150s. on 12/26 toprol was increased to 50mg BID and cardizem cd 120mg daily added.
-had in depth discussion today regarding options for treatment of refractory rapid AF. she remains hesitant to consider CV. she was agreeable after discussion to initiation of AAD with amiodarone as short term bridge to ablation. will continue
toprol and stop cardizem with addition of amio 200mg BID for 4 weeks then decrease to 200mg daily. check EKG to reassess QTc today.
-continue eliquis. 1 dose was missed 3/16PM while in ER
-will discuss with EP and schedule patient for OP follow up to discuss PFA.
-echo 12/25 with results as above, stable compared to prior
-TSH WNL
-ok for DC to home later today
-d/w hospitalist via TT. d/w nursing
PREADMIT DATA:
-Patient came to ER yesterday from an urgent care in the [facility] with complaints of palpitations and a finding of rapid A-fib resulting in admission and cardiology has been consulted. Patient reports that her middle school principal told her to take a
higher dose of calcium resulting in constipation and then rash. Patient went to a local urgent care yesterday and [facility] and was noted to be in A-fib with RVR in the urgent care insisted that she be evaluated in the emergency room, but the
patient was concerned that the ambulance would take her to a hospital other than and so she declined further care and drove here to instead. Patient has a known history of persistent A-fib. Patient has been more persistent with her A-fib and
at all available cardiology evaluations including 08/25/2022 at [facility], 03/25/2023 again at [facility] and in the cardiology office here at on 05/26/2023, 10/14/2023, 02/28/2024 and 08/04/2024. Patient has consistently declined options of
antiarrhythmic drug or ablation therapy. Patient has not completed an outpatient monitor since the year 2019 and at that time the A-fib burden was only about 15%. Review of cardiology notes from previous fourdrinier wire weaver indicates that patient was
having both symptomatic and asymptomatic A-fib and there was concern that her burden had increased as of 2022, but patient was unable to wear a monitor due to financial concerns and insurance reimbursement. At her last office visit 08/04/2024 it
was discussed again the options of AAD or ablation and the patient ultimately chose to continue her current regimen of Toprol XL 25 mg BID plus Lopressor as needed anywhere from 1-3 times a day. Patient denies any CP, SOB or SANTO.
Progress Note - Chief Operator Synthesis
Subjective
Date of Service: December 27, 2024
reports felt some heart pounding and palps associated with rapid AF overnight
Objective
Labs:
12/25/24 03:23
12/26/24 05:55
Labs
Hgb 11.0 g/dL (12.0-16.0) L 12/25/24 03:23
Hct 30.5 % (37.0-47.0) L 12/25/24 03:23
Plt Count 188 10^3/uL (130-400) 12/25/24 03:23
Sodium 137 mmol/L (135-145) 12/26/24 05:55
Potassium 4.7 mmol/L (3.5-5.1) D 12/26/24 05:55
BUN 8 mg/dl (7-17) 12/26/24 05:55
Creatinine 0.7 mg/dL (0.6-1.0) 12/26/24 05:55
Glucose 73 mg/dl (70-99) 12/26/24 05:55
Vital Signs and I&O:
Vital Signs
Temp Pulse Resp BP Pulse Ox
98.3 F 88 20 111/87 100
12/27/24 12:10 12/27/24 08:00 12/27/24 12:10 12/27/24 08:00 12/27/24 12:10
Vital Signs
Temp Pulse Resp BP Pulse Ox
98.3 F 88 20 111/87 100
12/27/24 12:10 12/27/24 08:00 12/27/24 12:10 12/27/24 08:00 12/27/24 12:10
Intake & Output
03/12/26/24 12/27/24 12/28/24
07:59 07:59 07:59 07:59
Intake Total 480 / 480 1045 / 1045 480 / 480
Balance 480 / 480 1045 / 1045 480 / 480
Physical Exam
Physical Exam
GEN: No distress, awake, alert, oriented x3
HEENT: supple, anicteric, mmm, eomi
LUNGS: CTA B/L, no wheezes
CV: Irreg, S1/S2, no murmur
ABD: soft, BS+, NT/ND
EXT: No cyanosis, clubbing, edema
NEURO: Gross non-focal
SKIN: Warm, pink, dry. No rash
[2024-12-27 14:36] VITALS: BP 125/97
--- NOTE | 2024-12-27 17:09 | W.DCSUMMARY ---
Discharge Summary
Discharge Data
Date of Admission: 12/24/24
Date of Discharge: 12/27/24
-
Pending Results: No
Hospital Course
Primary diagnosis:
Paroxysmal atrial fibrillation with a rapid ventricular rate
Possible colitis
New constipation
Right tongue ulcer
Secondary diagnosis:
Paroxysmal atrial fibrillation
Hospital course:
Patient with known history of paroxysmal atrial fibrillation presents with progressive constipation. She attributes that to increased calcium supplementation by her communication electronic technician. She tried herbal senna without results. Along with that she had
some abdominal discomfort with no nausea and vomiting. She also had freezing cold and shaking episodes needing for blankets. She had a generalized weakness subsequent to that. She had a faint rash apparently in the chest and the legs.
She was afebrile and white count was normal. Some abdominal discomfort noted on examination. She had a CT of the abdomen pelvis which raise the concern for colitis. Unclear if this is cervical coral colitis or other forms of colitis. She never
had a colonoscopy before. No prior history with constipation. Her TSH was normal. She was not bacteremic. She was initiated on ceftriaxone and Flagyl and bowel regimen. She had improvement and is abdominal symptoms. She was advised to complete
a 10-day course of antibiotics and follow GI and get a colonoscopy evaluation.
Along with that she was noted to be in RVR on presentation. Needed IV Cardizem drip and cardiology eval. She was already on beta-obie and Cardizem was introduced for rate control. She declined amiodarone use. She remained on anticoagulation.
She also brought to my attention right tongue swelling and pain. On clinical exam she had a very localized right tongue ulcer with some raised border suspect some chronicity to it. I do not see any obvious dental issues rubbing the area but
advised to see the dentist first and if no relation to the teeth then to get oral surgeon evaluation and a biopsy.
Consultants on board:
Cardiology Trinidad Chong
Discharge Plan
-
Patient Disposition: Home (Routine Discharge)
Discharge Diagnosis/Procedures: A-fib with RVR, colitis, constipation ,right tongue ulcer
Diet: Low Residue
Additional Diets: low residue for a week till constipation improves
Activity: As tolerated
Driving Restrictions: As prior to admission
Bathing Restrictions: None
Activity Restrictions/Additional Instructions:
See your dentist for tongue ulcer and if not dental related you would need to see oral surgeon
Referrals:
Chacorta Main MD [Active] - in four to six weeks (you would benefit colonoscopy after colitis treatment. Call for an appointment.)
Jaspal Le MD [Active] - 01/26/25 1:40 pm (You have a cardiology follow-up appointment at the [facility] office to discuss ablation. Please call with questions)
Justina Charles MD [Family Provider] - in less than 1 week
Prescriptions:
New
docusate sodium 100 mg Capsule
100 mg PO BID Qty: 60 0RF
diltiazem HCl 120 mg Capsule,Extended Release 24hr
120 mg PO BID Qty: 60 0RF
sennosides [Monica-lucy] 8.6 mg Tablet
8.6 mg PO BID Qty: 30 0RF
polyethylene glycol 3350 17 gram Powder In Packet
17 g PO DAILY Qty: 30 0RF
metoprolol succinate 50 mg Tablet Extended Release 24 Hr
50 mg PO BID Qty: 60 0RF
metronidazole 500 mg tablet
500 mg PO TID Qty: 21 0RF
cefdinir 300 mg capsule
300 mg PO BID Qty: 14 0RF
Continued
zolpidem 10 mg tablet
10 mg PO HSPRN PRN (Reason: sleep)
rosuvastatin 20 mg tablet
20 mg PO DAILY
Eliquis 5 mg tablet
5 mg PO BID
azelastine 137 mcg (0.1 %) [place],Non-Aerosol
1 spray INTRANASAL PRN PRN (Reason: seasonal allergies)
fluticasone propionate 50 mcg/actuation [place],Suspension
2 spray INTRANASAL DAILY
Lumigan 0.01 % drops
1 drp ophthalmic (eye) HS
Rx Instructions:
Both Eyes
benzonatate 200 mg Capsule
200 mg PO BID PRN (Reason: cough)
Discontinued
metoprolol succinate 25 mg tablet extended release 24 hr
25 mg PO BID
metoprolol tartrate 25 mg tablet
25 mg PO DAILY@1400
metoprolol tartrate 25 mg tablet
25 mg PO PRN PRN (Reason: palpitations)
metoprolol succinate 25 mg Tablet Extended Release 24 Hr
25 mg PO HS
Discharge Orders:
Discharge Patient (As Directed); Ordered 12/27/24
Ordered By: Singh Peters
Care Plan Goals
Care Plan Goals:
Problem: Readiness for enhanced knowledge related to diagnosis and treatment plan
Goal: Understand your diagnosis and treatment plan needs, including medications if applicable.
Instructions: Know your diagnosis, underlying causes and treatment plan options, including medications if applicable. Consult with your health care team to learn about your diagnosis and treatment plan, including medications if applicable.
Discharge Date and Time
Print Language: PORTUGUESE
--- NOTE | 2024-12-27 17:37 | PTCARENOTE ---
Pt seen by Fran Asher and Rey and also Saige Loza, BANDAR. Pt anxious , wants to go home with plan for ablation soon. Telemetry and IV device removed. Discharge instructions reviewed with pt regarding medications, low residue diet,
reporting cares and concerns and follow up appt's. Very good understanding verbalized but pt was anxious at DC having heard from many people about caring for her atrial fib. Pt walked down with RN who tried to allay her anxiety and was discharged to
home.
== END 2024-12-27 16:15 | disposition home or self-care (01) | DRG 392 ==
LOC: IVU 21:43
PROVIDERS: Physician Assistant Medical; ADMITTING PHYSICIAN Internal Medicine; ATTENDING PHYSICIAN Internal Medicine; EMERGENCY PHYSICIAN Emergency Medicine; FAMILY PHYSICIAN Internal Medicine; OTHER PHYSICIAN Internal Medicine Cardiovascular Disease
DX: K52.9 Noninfective gastroenteritis and colitis, unspecified (principal); I48.0 Paroxysmal atrial fibrillation; K59.00 Constipation, unspecified; K14.0 Glossitis; Z11.52 Encounter for screening for COVID-19; Z79.01 Long term (current) use of anticoagulants; Z85.3 Personal history of malignant neoplasm of breast; Z92.3 Personal history of irradiation; Z88.2 Allergy status to sulfonamides; Z79.899 Other long term (current) drug therapy; E78.5 Hyperlipidemia, unspecified; L27.0 Generalized skin eruption due to drugs and medicaments taken internally; Z82.49 Family history of ischemic heart disease and other diseases of the circulatory system
CPT/HCPCS: 71046; 74177; 80048; 80053; 83735; 84443; 85025; 85027; 86803; 87040; 87502; 87811; 93005; 93306; 96374; 99291; Q9967

== ENCOUNTER → 2025-06-28 12:54 | Outpatient (REF) | payer MEDICARE, OTHER, SELFPAY ==
[2025-06-28 13:41] LABS: Hematocrit 38.0 % (37.0-47.0); Hemoglobin 12.9 g/dL (12.0-16.0); Mean Corp Hgb Conc. 33.9 g/dL (33.0-37.0); Mean Corpuscular Volume 91.1 fL (81.0-99.0); Nucleated Red Blood Cells % 0 %; Platelet Count 192 10^3/uL (130-400); Red Cell Dist. Width 12.8 % (11.5-14.5)
[2025-06-28 13:44] LABS: ALT (SGPT) 35 U/L (0-35); AST (SGOT) 39 U/L (14-36); Albumin 4.9 g/dl (3.5-5.0); Alkaline Phosphatase 66 U/L (38-126); Blood Urea Nitrogen 8 mg/dl (7-17); Calcium 10.0 mg/dl (8.4-10.2); Carbon Dioxide 27 mmol/L (22-30); Chloride 104 mmol/L (98-107); Glucose 93 mg/dl (70-99); Magnesium 1.9 mg/dl (1.6-2.3); Potassium 4.2 mmol/L (3.5-5.1); Sodium 137 mmol/L (135-145); Total Protein 7.3 g/dl (6.3-8.2); eGFR > 60.00
[2025-06-28 13:58] LABS: INR 1.32; PT 16.9 Sec (11.4-14.6)
== END ==
LOC: SDSPAT 12:54
PROVIDERS: ATTENDING PHYSICIAN Internal Medicine Cardiovascular Disease; FAMILY PHYSICIAN Internal Medicine
DX: I48.91 Unspecified atrial fibrillation (principal)
CPT/HCPCS: 36415; 75572; 80053; 83735; 85025; 85610; 86850; 86900; 86901; 93005; Q9967

== ENCOUNTER 2025-07-10 07:29 | Day surgery (SDC) | payer MEDICARE, OTHER, SELFPAY ==
[2025-06-28 13:21] VITALS: BMI 19.5
[2025-07-10] VITALS (17 sets, daily range): BP systolic 91–121; BP diastolic 61–78; BMI 19.5
[2025-07-10 11:12] LABS: ACT-LR - POC 253 Seconds (116-155)
--- NOTE | 2025-07-10 11:28 | ITS.CL.ABL ---
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
Ablation
Procedure Report:
ELECTROPHYSIOLOGY ABLATION STUDY
DATE:: July 10, 2025�����������������������������REFERRING: Dr. Jaspal Le
INDICATION: Persistent supraventricular tachycardia in the form of atrial fibrillation.��Presented in sinus rhythm after recent cardioversion
HISTORY: See H and P.��As above
ANTIARRHYTHMIC DRUG: Metoprolol diltiazem
PRE-PROCEDURE NAEEM: No intracardiac thrombus on intracardiac ultrasound
PRESENTING RHYTHM: Sinus rhythm with left inferior pulmonary vein triggers for atrial fibrillation
'TIME-OUT':��called and confirmed.
SEDATION/ANESTHESIA:��provided via the anesthesia department using general anesthesia (LMA).
INTRAVENOUS/ARTERIAL ACCESS:
Right femoral venous -8Fr
Left femoral venous - 8 Fr, 6 Fr
[id number] suture to bilateral femoral vein
Ultrasound guidance for bilateral femoral vein access was utilized by me to obtain access with demonstration of normal anatomy
CHADS-VASC Score:
HAS-Bled Score
PROCEDURE:
1.��A decapolar CS catheter was placed within the CS for mapping and pacing.��This was also used as the reference catheter for the 3-D map. The patient was noted to go into atrial fibrillation from the left inferior pulmonary vein spontaneously.
Atrial fibrillation persisted throughout the pulmonary vein isolation procedure and terminated with ablation in the posterior wall as below.
2. The intracardiac ultrasound catheter was positioned in the RA to identify the FO for targeting of transseptal puncture, assist��in identification of the pulmonary vein ostia, monitoring pre and post ablation pulmonary vein flow velocities,
monitoring for 'bubble' formation during RF application as a sign of thermal injury,��and to monitor for pericardial effusion during mapping and ablation procedure.���Left atrial size, LV ejection fraction, and pulmonary vein flows were monitored
pre and post ablation procedure. The other valves were inspected and found to be free of significant regurgitation or stenosis.
3.��Half of the calculated heparin bolus was administered prior to the first transeptal puncture.��Transseptal puncture was performed to diagnose RA and LA pressure so that safety of LA mapping and ablation could be further assessed, and to access
the left atrium and pulmonary veins for mapping and ablation.��This entailed advancing an 16.8 Singaporean RF wire, sheath with dilator into the superior vena cava and withdrawing both (monitoring intracardiac ultrasound, fluoroscopy and tip pressure)
with the tip oriented toward the atrial septum.��The fossa ovalis was engaged (indicated by sudden displacement of the sheath tip as well as tenting of the fossa seen on intracardiac ultrasound).��Left atrial access required a pass with the
Brockenbrough needle extended.��Left atrial catheter position was confirmed by pressure monitoring (RA mean pressure 4 mm Hg and LA mean presure 12 mm Hg), LA saturation (99%),��as well as fluoroscopy.��The sheath was advanced over the dilator and
positioned in the left atrium.��The remainder of the calculated heparin bolus was administered and heparin was
infused to maintain ACT at 300 -350 seconds throughout the case.
4.��RA pacing was performed via the proximal decapolar poles and LA pacing was performed via the distal decapolr poles.
5. A decapolar catheter was first positioned at the His position for His Bundle recording which was tagged via the 3-D Navex sytem, and then passed to the RVA for RV pacing and recording.
6. The Penta spline and grid were placed in each of the LIPV, LSPV, RSPV and the RIPV.��
7.��Next, a 3-D map was created using Navex.���A 3-D reconstructed CT image was compared to the 3-D Navex map to assist in anatomic interpretation, mapping and ablation.��The CT image and the NavX image were fused.
8. A total of 53 lesions were given. We answered the left atrial pressure with additional hydration. The patient went into atrial fibrillation from the left inferior pulmonary vein spontaneously. Entrance block was achieved in all 4 pulmonary
veins and all of in basket poses. Atrial fibrillation persisted and a roof posterior wall and floor line with the flower pose was fashioned with termination into sinus rhythm with ablation in the flower pose outside the right inferior pulmonary
vein. Entrance next block was then confirmed.
9. Normal sinus node AV node function noted. Burst atrial pacing did not induce any other tachyarrhythmia nor other forms of atrial flutter.
TOTAL FLOURO TIME: 15.1 minutes 143 mGy
TOTAL RF DURATION: 0 minutes
REVERSAL OF HEPARIN: 40 mg of protamine, slow IV administration
COMPLICATIONS:
None
Intracardiac US shows no pericardial effusion post ablation.
SUMMARY:��
Complex left atrial mapping and ablation.
Trigger vein noted to be the left inferior pulmonary vein. Interesting spot confirmed in all 4 pulmonary veins as well as the left atrial posterior wall.
RECOMMENDATIONS:
1. Ambulate in 4 hours
2. Resume anticoagulation
3.��Will consider discontinuation of diltiazem due to bradycardia
4.��Consider same-day discharge
Copy to: Dr. Pato Le
[2025-07-10] MEDS: TYLENOL 650 MG PO (14:39)
[2025-07-10 16:15] LABS: Hepatitis C Antibody Negative (Negative)
--- NOTE | 2025-07-10 16:42 | CM ---
spoke to pt in room, she is prev indep, lives alone in a 1 story home with [address] she denies any dc planning needs or dme's. plan is for dc to home when medically stable.
--- NOTE | 2025-07-10 17:08 | PTCARENOTE ---
Patient received from [facility] at 1426; AAOx3, responds spontaneously to RN and follows commands; Patient complains of light sensitivity d/t her glaucoma as patient states is her baseline; VSS; SB with NSR on monitor; +1 right DP and +2 left DP; Lungs
clear; Poor appetite; Due to void; B/L groin sites intact; PIVx1 - #20 left forearm; See nursing documentation for further information
[2025-07-10] MEDS: ELIQUIS 5 MG PO (19:50)
[2025-07-10] MEDS: TOPROL XL 50 MG PO (21:03)
[2025-07-10] MEDS: AMBIEN 10 MG PO (22:44)
[2025-07-10] MEDS: ZYRTEC 10 MG PO (22:44)
[2025-07-10] MEDS: CRESTOR 20 MG PO (22:44)
--- NOTE | 2025-07-11 00:38 | PTCARENOTE ---
Received pt at change of shift resting in bed. SB-SR on tele, HR 50's-60's. BP 95/69 and HR in the low 50's. Reached out to Dr. Cassius Coe, instructed RN to give Toprol and hold Cardizem. pt denies any CP or SOB at this time. R and L groin
sites with figure [address] Sutures removed at 1949, gauze and Tegaderm dressing placed, dressing C/D/I. No bleeding or hematoma noted at this time. PRN Ambien administered per pt request--see DEC. Call salvador within reach.
[2025-07-11 03:24] VITALS: BP 101/68
[2025-07-11] MEDS: ANESTHETIC LOZENGE 1 LOZENGE PO ×3 (03:44→12:21)
[2025-07-11 04:35] LABS: Hematocrit 30.6 % (37.0-47.0); Hemoglobin 10.5 g/dL (12.0-16.0); Mean Corp Hgb Conc. 34.3 g/dL (33.0-37.0); Mean Corpuscular Volume 88.7 fL (81.0-99.0); Platelet Count 177 10^3/uL (130-400); Red Cell Dist. Width 13.2 % (11.5-14.5)
[2025-07-11 05:09] LABS: Blood Urea Nitrogen 11 mg/dl (7-17); Calcium 9.3 mg/dl (8.4-10.2); Carbon Dioxide 23 mmol/L (22-30); Chloride 107 mmol/L (98-107); Estimated Creatinine Clearance 58 ml/min; Glucose 106 mg/dl (70-99); Magnesium 1.9 mg/dl (1.6-2.3); Potassium 4.3 mmol/L (3.5-5.1); Sodium 135 mmol/L (135-145); eGFR > 60.00
[2025-07-11 07:58] VITALS: BP 106/69
[2025-07-11] MEDS: TOPROL XL 50 MG PO (08:00)
[2025-07-11] MEDS: ELIQUIS 5 MG PO (08:00)
[2025-07-11 08:17] VITALS: BMI 18.9
[2025-07-11 11:03] VITALS: BP 105/73
--- NOTE | 2025-07-11 11:22 | W.PN.CARDCBS ---
Addendum entered and electronically signed by Jaspal Le MD 07/11/25 12:18:
patient seen and examined
stable overnight
SR on tele
agree with TOOL PLANER SET UP OPERATOR note and assessment
agree with TOOL PLANER SET UP OPERATOR plan
exam:
cor regular
lungs ctab
abd soft nt nd
no ext edema
bilateral groin cdi
Impression:
Symptomatic persistent Afib
post PVI and PW ablation 07/10/25
Hyperlipidemia
Benign essential tremor
CAD
Breast Cancer with lumpectomy and XRT
Colitis
osteoarthritis
Plan:
tele SB, no sig ectopy
OAC Eliquis
Stop diltiazem with bradycardia-rates in the 40-50's on two av mallory agents
continue metoprolol 50mg bid
Activity restrictions reviewed
f/u Le in 3mo
home today
Original Note:
Today's Communication / Plan
-
post ablation
OAC, stop diltiazem, continue metoprolol
home today
Impression / Plan
-
PCP: Justina Charles MD
CDY: Jaspal Le MD
Impression:
Symptomatic persistent Afib
post PVI and PW ablation 07/10/25
Hyperlipidemia
Benign essential tremor
CAD
Breast Cancer with lumpectomy and XRT
Colitis
osteoarthritis
Plan:
post ablation feels good
tele SB, no sig ectopy
groins stable with scant ecchymosis
OAC Eliquis
Stop diltiazem with bradycardia
continue metoprolol 50mg bid
Activity restrictions reviewed
f/u Le in 3mo
home today
Progress Note - Jig Filler
Subjective
Date of Service: July 11, 2025
feels good, no cp, sob, ambulating in room
Objective
Labs:
07/11/25 03:39
07/11/25 03:39
Labs
Hgb 10.5 g/dL (12.0-16.0) L 07/11/25 03:39
Hct 30.6 % (37.0-47.0) L 07/11/25 03:39
Plt Count 177 10^3/uL (130-400) 07/11/25 03:39
Sodium 135 mmol/L (135-145) 07/11/25 03:39
Potassium 4.3 mmol/L (3.5-5.1) 07/11/25 03:39
BUN 11 mg/dl (7-17) 07/11/25 03:39
Creatinine 0.6 mg/dL (0.6-1.0) 07/11/25 03:39
Glucose 106 mg/dl (70-99) H 07/11/25 03:39
Vital Signs and I&O:
Vital Signs
Temp Pulse Resp BP Pulse Ox
97.8 F 55 15 106/69 100
07/11/25 11:00 07/11/25 11:00 07/11/25 11:00 07/11/25 07:58 07/11/25 11:00
Vital Signs
Temp Pulse Resp BP Pulse Ox
97.8 F 55 15 106/69 100
07/11/25 11:00 07/11/25 11:00 07/11/25 11:00 07/11/25 07:58 07/11/25 11:00
Intake & Output
07/09/25 07/10/25 07/11/25 07/12/25
06:59 06:59 06:59 06:59
Intake Total 1779
Balance 1779
Physical Exam
Physical Exam
NAD< AOX3
S1, S2, RRR
CTAB, non labored, no wheeze
SNTND Bsx4
b/l groins c/d/i no HT, soft scant ecchymosis
--- NOTE | 2025-07-11 12:22 | PTCARENOTE ---
Pt received this am oob ad maddie. C/o of sore throat, medicated with lozenger as ordered with relief. Bilateral groin site dressing removed. Sites soft and non tender.
--- NOTE | 2025-07-11 12:43 | PTCARENOTE ---
Pt discharged to home with her friend. Discharge instructions given and reviewed with good understanding and all questions answered.
--- NOTE | 2025-07-11 15:03 | W.DS.TRANS ---
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
-
Discharge Instructions:
Sleep Apnea Risk Low
Discharge Diagnosis/Procedures Atrial fibrillation post ablation
Diet Low Cholesterol
Driving Restrictions No driving for 24 hours
Instructions:
Stand-Alone Forms: DC Instructions- Cath/EP Lab
Changes to Home Medications: Yes
Discharge Medications:
DC Medications w/original date entered in [facility]
apixaban 5 mg tablet (Eliquis) 5 mg PO BID 12/24/24
azelastine 137 mcg (0.1 %) nasal spray 1 spray intranasal DAILYPRN PRN NASAL CONGESTION 12/24/24
bimatoprost 0.01 % eye drops (Lumigan) 1 drp ophthalmic (eye) HS 12/24/24
fluticasone propionate 50 mcg/actuation nasal spray,suspension 2 spray intranasal DAILY PRN allergies 12/24/24
rosuvastatin 20 mg tablet 20 mg PO DAILY 12/24/24
zolpidem 10 mg tablet 10 mg PO HSPRN PRN INSOMNIA 12/24/24
metoprolol succinate 50 mg tablet,extended release 24 hr 50 mg PO BID #60 tabs 12/27/24
cholecalciferol (vitamin D3) 25 mcg (1,000 unit) tablet (Vitamin D3) 25 mcg PO DAILY 06/26/25
coQ10 (ubiquinol) 100 mg capsule 100 mg PO DAILY 06/26/25
metoprolol tartrate 25 mg tablet 25 mg PO PRN PRN AFIB/IRREGULAR HR; 06/26/25
sennosides 8.6 mg capsule 8.6 mg PO DAILY PRN CONSTIPATION 06/26/25
vitamin B complex 1 tab PO DAILY 06/26/25
cetirizine 10 mg capsule (Zyrtec) 10 mg PO HS 07/10/25
hydrocortisone 0.25 % topical cream 1 applic topical DAILY PRN eczema/rash 07/10/25
Home Medication Changes
stopped diltiazem
Pending Results: No
== END 2025-07-11 12:54 | disposition home or self-care (01) ==
LOC: CATH 07:29
PROVIDERS: Nurse Practitioner Adult Health; ATTENDING PHYSICIAN Internal Medicine Cardiovascular Disease; FAMILY PHYSICIAN Internal Medicine
DX: I48.19 Other persistent atrial fibrillation (principal); I25.10 Atherosclerotic heart disease of native coronary artery without angina pectoris; E78.5 Hyperlipidemia, unspecified; G25.0 Essential tremor; Z79.01 Long term (current) use of anticoagulants; Z79.899 Other long term (current) drug therapy; Z85.3 Personal history of malignant neoplasm of breast
CPT/HCPCS: 80048; 83735; 85027; 85347; 86803; 86900; 86901; 93005; 93656; 93657; C1730; C1732; C1733; C1759; C1766; C1769; C1892; C1894